=== PATIENT | female | born 1955 | race Caucasian/White ===

== ENCOUNTER 2024-05-20 18:34 | Emergency (ER) | payer MEDICARE, OTHER, SELFPAY ==
[2024-05-20 18:44] VITALS: BP 156/65
[2024-05-20 19:10] LABS: % Basophils 0.8 % (0-2); % Immature Granulocytes 0.1 % (0-0.5); % Lymphocytes 19.1 % (20.5-51.1); % Monocytes 8.9 % (1.7-9.3); % Neutrophils 70.1 % (42.2-75.2); Absolute Basophils 0.1 10^3/uL (0-0.2); Absolute Eosinophils 0.1 10^3/uL (0-0.7); Absolute Lymphocytes 1.6 10^3/uL (1.2-3.4); Absolute Monocytes 0.7 10^3/uL (0.1-0.6); Absolute Neutrophils 5.8 10^3/uL (1.4-6.5); Hematocrit 40.4 % (37.0-47.0); Hemoglobin 13.3 g/dL (12.0-16.0); Mean Corp Hgb Conc. 32.9 g/dL (33.0-37.0); Mean Corpuscular Hgb 29.8 pg (27.0-31.0); Mean Corpuscular Volume 90.6 fL (81.0-99.0); Mean Platelet Volume 9.3 fL (7.4-10.4); Nucleated Red Blood Cells % 0 %; Platelet Count 167 10^3/uL (130-400); Red Blood Cell Count 4.46 10^6/uL (4.20-5.40); Red Cell Dist. Width 12.5 % (11.5-14.5); White Blood Cell Count 8.3 10^3/uL (4.8-10.8)
[2024-05-20 19:25] LABS: ALT (SGPT) 38 U/L (0-35); AST (SGOT) 52 U/L (14-36); Albumin 4.3 g/dl (3.5-5.0); Alkaline Phosphatase 87 U/L (38-126); Blood Urea Nitrogen 17 mg/dl (7-17); Calcium 9.4 mg/dl (8.4-10.2); Carbon Dioxide 24 mmol/L (22-30); Chloride 105 mmol/L (98-107); Glucose 152 mg/dl (70-99); Potassium 3.9 mmol/L (3.5-5.1); Sodium 139 mmol/L (135-145); Total Bilirubin 1.1 mg/dl (0.2-1.3); Total Protein 6.9 g/dl (6.3-8.2); eGFR > 60.00
[2024-05-20 19:38] LABS: Troponin I < 0.012 ng/ml
[2024-05-20 21:33] VITALS: BMI 25.6
[2024-05-20 21:35] VITALS: BP 134/67
[2024-05-20 21:58] VITALS: BP 138/70
[2024-05-20 22:00] VITALS: BP 130/66
--- NOTE | 2024-05-20 22:18 | ED.GENMED ---
History of Present Illness
<Jemima Mott MD, Resident - Last Filed: 05/20/24 22:31>
General
Chief Complaint: Breathing Problem
Time Seen by Provider: 05/20/24 21:42
History of Present Illness
History of Present Illness:
68 y/o female with no pmhx presenting to the ED with chest pain when taking deep breaths. Patient notes upper back pain on Saturday. Yesterday, he was having chest pain located in midsternal region when taking deep breaths. Patient also notes neck
pain that has no resolved. Notes took tylenol with pain relief. Denies fever, cough, URI, abdominal pain, urinary symptoms, nausea, vomiting, appetite loss. States had chills last night. Pain is not associated with meals or positional. Patient has
been in contact with grandchildren who were sick. Also notes lifting heavy containers this week.
Past History
<Jemima Mott MD, Resident - Last Filed: 05/20/24 22:31>
Past History
ED Past Medical History: None
ED Past Surgical History: None
Social History
Alcohol: Daily
Review of Systems
<Jemima Mott MD, Resident - Last Filed: 05/20/24 22:31>
Review of Systems
Constitutional: Reports chills
EENT: Reports no symptoms
Respiratory: Reports no symptoms
Cardiac: Reports other (pain with breathing)
ABD/GI: Reports no symptoms
: Reports no symptoms
Musculoskeletal: Reports neck pain
Skin: Reports no symptoms
Neurological: Reports no symptoms
Endocrine: Reports no symptoms
Hematologic/Lymphatic: Reports no symptoms
Psychiatric: Reports no symptoms
Phy Exam
<Jemima Mott MD, Resident - Last Filed: 05/20/24 22:31>
Physical Exam
Physical Exam:
GENERAL: Alert, awake, in no apparent distress.
EYE: Pupils equal and reactive.
NECK: Supple, no significant adenopathy. No midline tenderness.
ENT: o/p clr, mmm.
CARDIAC: Regular rate and rhythm. Pain not reproducible on chest.
LUNGS: Clear breath sounds bilaterally, no acute respiratory distress, no wheezes/rales/rhonchi.
ABDOMEN: Soft, without focal tenderness, no r/g, no cvat.
NEUROLOGICAL: Alert and oriented, no focal neuro deficits.
SKIN: Warm and dry, skin intact.
MUSCULOSKELETAL: No edema, well perfused.
PSYCH: Normal and appropriate interaction.
Scores
<Jemima Mott MD, Resident - Last Filed: 05/20/24 22:31>
Heart Failure Risk
Heart Failure Risk Score: Not Applicable
Course
<Jemima Mott MD, Resident - Last Filed: 05/20/24 22:31>
Orders/Labs/Results
Orders:
Orders
05/20/24 18:46
Electrocardiogram (*1) Urgent
Reason for Study: Chest Pain
EKG- Treatment ONCE
Chest [CR Chest - 2 Views ] Urgent
Comment:
Reason For Exam: sp/sob
05/20/24 19:02
Complete Blood Count/With Diff Urgent
Comprehensive Metabolic Panel Urgent
Troponin I Urgent
05/20/24 22:35
Ibuprofen [Motrin] 600 mg PO NOW STA
Abnormal Lab Results
05/20/24
19:02
MCHC 32.9 L g/dL
(33.0-37.0)
Absolute Monos (auto) 0.7 H 10^3/uL
(0.1-0.6)
Lymphocytes % 19.1 L %
(20.5-51.1)
Glucose 152 H mg/dl
(70-99)
AST 52 H U/L
(14-36)
ALT 38 H U/L
(0-35)
05/20/24 19:02
05/20/24 19:02
Vital Signs
Initial and Last Documented VS:
Initial Vital Signs
Temp Pulse Resp BP Pulse Ox
98.5 F 89 21 156/65 97
05/20/24 18:44 05/20/24 18:44 05/20/24 18:44 05/20/24 18:44 05/20/24 18:44
Last Documented Vital Signs
Temp Pulse Resp BP Pulse Ox
98.0 F 78 22 130/66 98
05/20/24 21:35 05/20/24 22:30 05/20/24 22:30 05/20/24 22:00 05/20/24 22:30
<Regina Suazo, DO - Last Filed: 05/21/24 07:29>
Orders/Labs/Results
Orders:
Orders
05/20/24 18:46
Electrocardiogram (*1) Urgent
Reason for Study: Chest Pain
EKG- Treatment ONCE
Chest [CR Chest - 2 Views ] Urgent
Comment:
Reason For Exam: sp/sob
05/20/24 19:02
Complete Blood Count/With Diff Urgent
Comprehensive Metabolic Panel Urgent
Troponin I Urgent
05/20/24 22:35
Ibuprofen [Motrin] 600 mg PO NOW STA
Abnormal Lab Results
05/20/24
19:02
MCHC 32.9 L g/dL
(33.0-37.0)
Absolute Monos (auto) 0.7 H 10^3/uL
(0.1-0.6)
Lymphocytes % 19.1 L %
(20.5-51.1)
Glucose 152 H mg/dl
(70-99)
AST 52 H U/L
(14-36)
ALT 38 H U/L
(0-35)
05/20/24 19:02
05/20/24 19:02
Vital Signs
Initial and Last Documented VS:
Initial Vital Signs
Temp Pulse Resp BP Pulse Ox
98.5 F 89 21 156/65 97
05/20/24 18:44 05/20/24 18:44 05/20/24 18:44 05/20/24 18:44 05/20/24 18:44
Last Documented Vital Signs
Temp Pulse Resp BP Pulse Ox
98.0 F 78 22 130/66 98
05/20/24 21:35 05/20/24 22:30 05/20/24 22:30 05/20/24 22:00 05/20/24 22:30
<Jemima Mott MD, Resident - Last Filed: 05/20/24 22:31>
MDM/Problems Addressed
Differential Diagnosis Includes:
Pneumonia
ACS
Pneumothorax
PE
Musculoskeletal
MDM/Problems Addressed:
- EKG, troponin
- CBC, CMP
- Chest x-ray
<Jemima Mott MD, Resident - Last Filed: 05/20/24 22:31>
*Critical Care Note
Total Time (30-74mins, 75-104mins- exclusive of procedures): Not Applicable
ED Attending Note
<Jemima Mott MD, Resident - Last Filed: 05/20/24 22:31>
-
Portions of this chart may have been created with voice recognition software.� Occasional wrong word or��sound alike� substitutions may have occurred due to the inherent limitations of voice recognition software.
<Regina Suazo DO - Last Filed: 05/21/24 07:29>
ED Attending Note
Patient seen and examined by attending physician: Yes
I performed a history and physical exam of patient and discussed management with resident, I reviewed resident's note and agree with documented findings and plan of care.: Yes
ED Attending Note:
68-year-old woman with no significant past medical history complains of 2-day history of generalized upper back pain associated with upper chest pain. Chest pain is only noted with deep breath and no other associated symptoms. No cough no fever,
no nausea or vomiting, no diarrhea or constipation, no shortness of breath, no dyspnea on exertion, no palpitations, no dizziness or lightheadedness. She does admit to some heavy lifting but denies insightful injury. No leg pain or swelling, no
recent travel. She has been taking Tylenol with improvement in pain.
Back pain has resolved and overall chest pain has improved throughout the day today.
68-year-old woman appears her stated age, bright and alert, pleasant, appears in no acute distress. Family is accompanying. Vital signs within normal limits. Mild systolic hypertension noted initially, has normalized without intervention.
Heart is regular rate and rhythm. No murmur no rub. Mild tenderness palpation superior parasternal region. No crepitus.
Lungs are clear to auscultation, respirations are easy nonlabored.
History and exam most consistent with musculoskeletal back/upper chest pain. Other consideration is ACS, pleurisy, pneumonia.
Overall well in appearance and reassuring that pain has been improving throughout the day.
Labs are unremarkable save for minimally elevated LFTs. No old labs to compare.
Troponin is negative.
With ongoing chest discomfort over the past 2 days, negative troponin, unremarkable EKG. ACS is unlikely.
Chest x-ray is unremarkable as well.
Recommend she continue Tylenol versus ibuprofen as needed for discomfort. Whether musculoskeletal pain versus mild element of pleurisy, tincture of time and supportive measures recommended.
Prompt follow-up with PCP for recheck.
Return precautions discussed.
Discharge Plan
Departure
Patient Disposition: Home (Routine Discharge)
Date of Disposition: 05/20/24
Time of Disposition: 22:43
Patient with high blood pressure during this ER visit?: No
Condition: Good
Discharge Problem:
Pain aggravated by breathing
Instructions: Chest Pain (DC)
Referrals:
Fredrick Tucker MD [Active] -
UNKNOWN - PT DOES,NOT KNOW [Family Provider] -
Activity Restrictions/Additional Instructions:
You should follow up with a family physician. You can visit the family medicine residency clinic in [place]. You should return to the emergency department if you develop shortness of breath, fever, palpitations, confusion, syncope, or any
symptoms that are concerning to you.
Interventions
Interventions:
*Risk Screen - Suicide Last Done: 05/20/24 18:44
*General Assessment Last Done: 05/20/24 18:44
*Neglect/Abuse Screening Last Done: 05/20/24 18:44
*Nursing Disposition Last Done: 05/20/24 22:57
ED- Cardiac Assessment Last Done: 05/20/24 21:45
ED- Pulmonary Assessment Last Done: 05/20/24 21:45
Discharge Date and Time
Discharge Date/Time: 05/20/24 22:59
Print Language: SAMMARINESE
[2024-05-20] MEDS: MOTRIN 600 MG PO (22:50)
== END 2024-05-20 22:59 | disposition home or self-care (01) ==
LOC: EMR 18:34
PROVIDERS: Student in an Organized Health Care Education/Training Program; EMERGENCY PHYSICIAN Emergency Medicine
DX: R07.89 Other chest pain (principal); M54.6 Pain in thoracic spine
CPT/HCPCS: 99283; 71046; 80053; 84484; 85025; 93005